=== PATIENT | male | born 1965 | race Caucasian/White ===

== ENCOUNTER 2017-04-21 11:04 | Observation (INO) ==
[2017-04-21 11:47] LABS: Basophils % 0.2 %; Eosinophils % 0.4 %; Hematocrit 48.2 % (37.5-50.1); Hemoglobin 16.2 g/dL (12.9-16.9); Immature Granulocytes % 0.2 % (0-4); Lymphocytes # 1.5 K/mcL (0.6-4.6); Lymphocytes % 27.5 %; Mean Corpuscular HGB Conc 33.6 g/dL (31.6-35.5); Mean Corpuscular Hemoglobin 29.1 pg (28.0-33.3); Mean Corpuscular Volume 86.5 fL (83.0-100.0); Mean Platelet Volume 11.8 fL (9.4-12.4); Monocytes # 0.5 K/mcL (0.0-1.3); Monocytes % 9.3 %; Neutrophils # 3.3 K/mcL (1.6-8.9); Platelet Count 125 K/mcL (140-400); Red Blood Count 5.57 M/mcL (4.19-5.50); Red Cell Distribution Width 12.2 % (11.5-14.5); Segmented Neutrophils % 62.4 %
[2017-04-21 11:57] LABS: BUN/Creatinine Ratio 11 (6-26); Blood Urea Nitrogen 13 mg/dL (8-26); Calcium 8.9 mg/dL (8.6-10.8); Carbon Dioxide 27 mEq/L (19-29); Chloride 109 mEq/L (98-109); Glucose 109 mg/dL (70-99); Osmolality,Calculated 295 (280-300); Potassium 3.9 mEq/L (3.5-4.5); Sodium 142 mEq/L (136-145); eGFR For African Americans > 60 (> 60); eGFR For Non-African Americans > 60 (> 60)
--- NOTE | 2017-04-21 12:14 | Emergency Department Note ---
Disposition Clinical Impression: Atrial flutter with rapid ventricular response Disposition: Admitted As Inpatient Condition: Fair Chest Pain HPI - General Chief Complaint: ED Chest Pain Stated Complaint: C/P x3 days Time Seen by Provider: 04/21/17 11:14 Source: patient Limitations: no limitations Vital Signs Reviewed: Yes Nursing Notes Reviewed: Yes - History of Present Illness HPI Narrative: The patient does have a history of intermittent atrial fibrillation and the patient is use energy drinks in the past and did drink 2 large monster drinks on and then exercised and after that had an onset of fast heartbeat which has been persistent for the last 3 days, he does not have any current associated dyspnea or diaphoresis. Does have some lightheadedness when these hands intermittently but none at this time. Does have some chest tightness which is also intermittent the last several days, nonexertional. No radiation. No pleuritic aspect. No pain or swelling of the lower extremities. Social history: Nonsmoker. Family history: Negative for heart disease Severity scale (1-10): 2 - Related Data Home Medications Medication Instructions Recorded Confirmed Aspirin [Lo-Dose Aspirin EC] 81 mg PO DAILY 04/21/17 04/21/17 Gluc/Pablo-MSM#1/C/Franc/Sammy/Bor [Eq 1 tab PO DAILY 04/21/17 04/21/17 Fampiygyirt-Zrcbspx-GAZ Tab] Multivits,Ca,Min/Iron/FA/Lycop 1 tab PO DAILY 04/21/17 04/21/17 [Centrum Men's Tablet] Allergies Allergy/AdvReac Type Severity Reaction Status Date / Time No Known Allergies Allergy Verified 04/21/17 11:06 Review of Systems: Constitutional: No fever Vision: No blurred vision ENT: No rhinorrhea Respiratory: No cough Allergic: No allergies : No blood in urine GI: No blood in stool Hematologic: No bruising Dermatologic: No skin rash Musculoskeletal: No pain in the extremities Neuro: No numbness of the extremities Chest Pain PMH - Past Medical History Medical history: Reports: atrial fibrillation, hyperlipidemia Psychiatric history: Reports: no psych history - Social History Smoking Status: Never smoker Alcohol use: Reports: none Drug use: Reports: none Physical Exam CONSTITUTIONAL: Well-appearing; well-nourished; A&O X 3, in no apparent distress HEAD: Normocephalic; atraumatic EYES: PERRL, no scleral icterus NOSE: The nose is normal in appearance without rhinorrhea NECK: No JVD or distended neck veins RESP: Normal chest excursion with respiration; breath sounds clear and equal bilaterally; no wheezes, rhonchi, or rales CARD: Regular rhythm, without murmurs, rub or gallop ABD: Non-distended; non-tender, soft, without rigidity, rebound or guarding,no pulsatile mass CHEST: No pain with palpation SKIN: Normal for age and race; warm and dry without diaphoresis ; no apparent lesions EXTREMITIES: Pulses are 2 plus and equal times 4 extremities, no peripheral edema or calf muscle pain - General Limitations: no limitations General appearance: alert Course Vital Signs Temperature 98.6 F 04/21/17 11:07 Pulse Rate 149 04/21/17 11:07 Respiratory Rate 20 04/21/17 11:07 Blood Pressure 114/82 04/21/17 11:07 O2 Sat by Pulse Oximetry 96 04/21/17 11:07 Temperature 98.0 F 04/21/17 15:35 Pulse Rate 69 04/21/17 15:35 Respiratory Rate 18 04/21/17 15:35 Blood Pressure 108/73 04/21/17 15:35 O2 Sat by Pulse Oximetry 97 04/21/17 15:35 Oxygen Delivery Oxygen Delivery Room Air Chest Pain - MDM Narrative Medical decision making narrative: Patient does have atrial fibrillation with rapid ventricular response, I have reviewed the lab results. Chest x-ray is pending to. I did review the EKG showing atrial flutter with a rapid ventricular response with rate of 145 bpm. The patient does not use any caffeine or energy drinks the last 3 days according to the patient. He will receive a Cardizem bolus 20 mg and then Cardizem drip 10 mg per hour and the patient will be admitted to the hospital. 1215 I did review the patient's lab results. He is being admitted to the hospital. Heart rate significantly improved after Cardizem. Repeat EKG shows a significantly improved rate in the patient is no longer in exacerbate - Medical Records Medical records reviewed: Yes I reviewed the patient's medical records. - Lab Data Lab results reviewed: Yes I reviewed the patient's lab results. Result diagrams: 04/21/17 11:37 04/21/17 11:37 Lab Results 04/21/17 04/21/17 04/21/17 Range/Units 11:37 11:37 11:37 WBC 5.4 (4.3-11.1) K/mcL RBC 5.57 H (4.19-5.50) M/mcL Hgb 16.2 (12.9-16.9) g/dL Hct 48.2 (37.5-50.1) % MCV 86.5 (83.0-100.0) fL MCH 29.1 (28.0-33.3) pg MCHC 33.6 (31.6-35.5) g/dL RDW 12.2 (11.5-14.5) % Plt Count 125 L (140-400) K/mcL MPV 11.8 (9.4-12.4) fL Immature Gran % 0.2 (0-4) % Seg Neutrophils % 62.4 % Lymphocytes % 27.5 % Monocytes % 9.3 % Eosinophils % 0.4 % Basophils % 0.2 % Neutrophils # 3.3 (1.6-8.9) K/mcL Lymphocytes # 1.5 (0.6-4.6) K/mcL Monocytes # 0.5 (0.0-1.3) K/mcL Eosinophils # 0.0 (0.0-0.6) K/mcL Basophils # 0.0 (0.0-0.2) K/mcL PT (9.4-12.1) Seconds INR APTT (26.0-36.0) Seconds Sodium 142 (136-145) mEq/L Potassium 3.9 (3.5-4.5) mEq/L Chloride 109 (98-109) mEq/L Carbon Dioxide 27 (19-29) mEq/L BUN 13 (8-26) mg/dL Creatinine 1.14 (0.72-1.25) mg/dL Est GFR ( Amer) > 60 (> 60) Est GFR (Non-Af Amer) > 60 (> 60) BUN/Creatinine Ratio 11 (6-26) Glucose 109 H (70-99) mg/dL Calculated Osmolality 295 (280-300) Calcium 8.9 (8.6-10.8) mg/dL Troponin I 0.01 (0-0.03) ng/mL 04/21/17 Range/Units 11:37 WBC (4.3-11.1) K/mcL RBC (4.19-5.50) M/mcL Hgb (12.9-16.9) g/dL Hct (37.5-50.1) % MCV (83.0-100.0) fL MCH (28.0-33.3) pg MCHC (31.6-35.5) g/dL RDW (11.5-14.5) % Plt Count (140-400) K/mcL MPV (9.4-12.4) fL Immature Gran % (0-4) % Seg Neutrophils % % Lymphocytes % % Monocytes % % Eosinophils % % Basophils % % Neutrophils # (1.6-8.9) K/mcL Lymphocytes # (0.6-4.6) K/mcL Monocytes # (0.0-1.3) K/mcL Eosinophils # (0.0-0.6) K/mcL Basophils # (0.0-0.2) K/mcL PT 10.4 (9.4-12.1) Seconds INR 1.0 APTT 27.7 (26.0-36.0) Seconds Sodium (136-145) mEq/L Potassium (3.5-4.5) mEq/L Chloride (98-109) mEq/L Carbon Dioxide (19-29) mEq/L BUN (8-26) mg/dL Creatinine (0.72-1.25) mg/dL Est GFR ( Amer) (> 60) Est GFR (Non-Af Amer) (> 60) BUN/Creatinine Ratio (6-26) Glucose (70-99) mg/dL Calculated Osmolality (280-300) Calcium (8.6-10.8) mg/dL Troponin I (0-0.03) ng/mL - Radiology Data Radiology results reviewed: Yes I reviewed the patient's radiology results. Critical Care Time Critical Care Time: Yes Total Critical Care Time: 30 Attestation: 30 minutes of critical care time with the patient with atrial flutter with rapid ventricular response administer of Cardizem bolus and Cardizem drip and repeat EKG and continued management of a unstable patient
[2017-04-21] MEDS ORDERED: 0.9 % Sodium Chloride 1,000 ML ONE (12:37)
[2017-04-21] MEDS ORDERED: 0.9 % Sodium Chloride 1,000 ML IVC ONE (12:46)
[2017-04-21] MEDS ORDERED: Naloxone 0.4 MG/ML INJ IVP PRN (14:07)
[2017-04-21] MEDS ORDERED: Acetaminophen 325 MG TABLET PO PRN (14:07)
[2017-04-21] MEDS ORDERED: Ondansetron 4 MG/2 ML VIAL IVP PRN (14:07)
[2017-04-21] MEDS ORDERED: *HR* Heparin 5,000 UNIT/ML VIAL IVP ONE (14:13)
[2017-04-21] MEDS ORDERED: *HR* Heparin 5,000 UNIT/ML VIAL IVP PRN ×2 (14:13)
[2017-04-21] MEDS ORDERED: Heparin 25,000 UNIT/500 ML D5W 25,000 UNIT/500 ML MLS IVC SCH (14:15)
--- NOTE | 2017-04-21 14:23 | Internal Med History&Physical ---
<Palmira Smart M - Last Filed: 04/21/17 14:19> Date of Encounter: 04/21/17 Time of Encounter: 14:19 Assessment and Plan (1) Atrial flutter with rapid ventricular response Current visit: Yes Status: Acute Patient presented with palpitations and heart racing which was constant since . EKG showed Aflutter with RVR, HR 145. After treatment with cardizem bolus and drip, patient in afib with HR in the 80s. Cardiology consulted, spoke with Dr. Vaz who requested heparin drip and NPO after midnight. Continue cardizem drip continuous cardiac rehab nurse (2) HLD (hyperlipidemia) Current visit: Yes Status: Acute Patient reports history of hyperlipidemia. He stopped taking his statin a few months ago. Will check lipid panel with AM labs and plan to restart statin on discharge. Qualifiers: Hyperlipidemia type: unspecified Qualified Code(s): E78.5 - Hyperlipidemia , unspecified (3) DVT prophylaxis Current visit: Yes Status: Acute anti-embolic stockings Patient on heparin drip for afib, additional pharmacologic prophylaxis not warranted. Internal Medicine - H&P: HPI Chief complaint: palpitations Admitted From: Emergency Dept Plans for Post Hospital Care: Home History of present illness: Mr. Nieto is a 51 year old male with hyperlipidemia, presents emergency department today with complaints of palpitations and intermittent chest tightness. Patient reports that on he drink some energy drinks, and exercised and soon after felt palpitations and felt like his heart was racing. He reports this is happened to him in the past on and off and is usually instigated by caffeine, and resolves after a little while. Patient reports that his symptoms did not resolve and his heart rate continued to be fast. When it still did not go away today he decided to come into the emergency department to be evaluated. He reports he had intermittent chest tightness over the weekend. He also had occasional lightheadedness on standing. He denies any shortness of breath, nausea, diaphoresis. He denies any numbness or tingling. Denies any recent infections, fevers, chills or sweats. Evaluation in the emergency department included EKG which showed a flutter with heart rate of 145. Troponin was negative at 0.01. Other labs are grossly normal. Chest x -ray was normal. Patient was given a Cardizem bolus 20 mg followed by a Cardizem drip which normalized his rate to the 80s, repeat EKG showed he was still in atrial fibrillation with heart rate in the 80s. On exam, patient alert and oriented, in no acute distress heart had a regular rhythm, with controlled rate in the 80s. Lungs are clear bilaterally to auscultation, abdomen was soft, nontender with positive bowel sounds. No peripheral edema, peripheral pulses intact. I spoke with Dr. Vaz of cardiology who requested he be put on a heparin drip and nothing by mouth after midnight. Past Med Surg Social Fam HX - Past Medical History Medical history: atrial fibrillation, hyperlipidemia Psychiatric history: no psych history - Past Surgical History Surgical History: herniorrhaphy - Social History Smoking Status: Never smoker Smokeless Tobacco Status: Yes Alcohol use: none Drug use: none - Family History Mother Living Status: Still Living Father Living Status: Hx Family Cancer: Yes Internal Medicine - H&P: Meds Aspirin [Lo-Dose Aspirin EC] 81 mg PO DAILY 04/21/17 [History] Gluc/Pablo-MSM#1/C/Franc/Sammy/Bor [Eq Wametshwkqb-Ncsrldt-UMY Tab] 1 tab PO DAILY 04/21/17 [History] Multivits,Ca,Min/Iron/FA/Lycop [Centrum Men's Tablet] 1 tab PO DAILY 04/21/17 [ History] 3 Allergy/AdvReac Type Severity Reaction Status Date / Time No Known Allergies Allergy Verified 04/21/17 11:06 All Systems PM: A 10-system review of systems was performed and is negative for pertinent findings except as documented above in the HPI. - Constitutional Constitutional: no chills, no fever(s), no night sweats - EENT Eyes: no change in vision, no discharge, no pain, no photophobia Ears: no ear discharge, no ear pain, no tinnitus Nose, mouth and throat: no dysphagia, no nasal discharge, no neck pain, no sore throat - Cardiovascular Cardiovascular ROS IM: chest pain, lightheadedness, palpitations, no diaphoresis , no dyspnea, no syncope - Respiratory Respiratory: no cough, no dyspnea, no wheezing, no excessive phlegm production - Gastrointestinal Gastrointestinal: no abdominal pain, no diarrhea, no hematemesis, no hematochezia, no melena, no nausea, no vomiting - Musculoskeletal Musculoskeletal ROS IM: no numbness, no tingling - Integumentary Integumentary IM: no rash, no unusual bruising - Neurological Neurological ROS: no confusion, no convulsions, no focal weakness, no numbness, no tingling, no tremor(s) - Hematologic/Lymphatic Hematologic/Lymphatic: no easy bruising - Constitutional Vitals: Temp Pulse Resp BP Pulse Ox 98.6 F 84 16 112/77 98 04/21/17 11:07 04/21/17 13:26 04/21/17 13:26 04/21/17 13:26 04/21/17 13:26 General appearance: Present: A&O X 3, pleasant, no acute distress - Head Head exam: Present: atraumatic, normocephalic - Eye Eye exam: Present: PERRL, conjuntiva pink, sclera anicteric Pupils: Present: PERRL - Neck Neck exam general surgery: Present: supple, trachea midline. Absent: lymphadenopathy - Respiratory Respiratory exam: Present: CTAB. Absent: accessory muscle use, rales, rhonchi, wheezes - Cardiovascular Cardiovascular exam: Present: irregular rhythm, +S1, +S2. Absent: diastolic murmur, gallop, rubs, systolic murmur - GI/Abdominal GI/Abdominal exam: Present: normal bowel sounds, soft, no peritoneal signs. Absent: distended, tenderness - Extremities Exam Extremities exam: Present: warm, radial pulses palpable and symmetrical. Absent : calf tenderness, cyanotic, pedal edema - Neurological Exam Neurological exam: Present: CN II-XII intact, oriented X3, no focal deficits. Absent: pronater drift, facial droop, speech deficit - Skin Skin exam: Present: dry, intact Internal Med - H&P Results - Labs CBC & Chem 7: 04/21/17 11:37 04/21/17 11:37 Labs: All Lab Results (24 Hours) 04/21/17 04/21/17 04/21/17 Range/Units 11:37 11:37 11:37 WBC 5.4 (4.3-11.1) K/mcL RBC 5.57 H (4.19-5.50) M/mcL Hgb 16.2 (12.9-16.9) g/dL Hct 48.2 (37.5-50.1) % MCV 86.5 (83.0-100.0) fL MCH 29.1 (28.0-33.3) pg MCHC 33.6 (31.6-35.5) g/dL RDW 12.2 (11.5-14.5) % Plt Count 125 L (140-400) K/mcL MPV 11.8 (9.4-12.4) fL Immature Gran % 0.2 (0-4) % Seg Neutrophils % 62.4 % Lymphocytes % 27.5 % Monocytes % 9.3 % Eosinophils % 0.4 % Basophils % 0.2 % Neutrophils # 3.3 (1.6-8.9) K/mcL Lymphocytes # 1.5 (0.6-4.6) K/mcL Monocytes # 0.5 (0.0-1.3) K/mcL Eosinophils # 0.0 (0.0-0.6) K/mcL Basophils # 0.0 (0.0-0.2) K/mcL Sodium 142 (136-145) mEq/L Potassium 3.9 (3.5-4.5) mEq/L Chloride 109 (98-109) mEq/L Carbon Dioxide 27 (19-29) mEq/L BUN 13 (8-26) mg/dL Creatinine 1.14 (0.72-1.25) mg/dL Est GFR ( Amer) > 60 (> 60) Est GFR (Non-Af Amer) > 60 (> 60) BUN/Creatinine Ratio 11 (6-26) Glucose 109 H (70-99) mg/dL Calculated Osmolality 295 (280-300) Calcium 8.9 (8.6-10.8) mg/dL Troponin I 0.01 (0-0.03) ng/mL - Impressions ITS Impressions Chest X-Ray 04/21/17 11:25 IMPRESSION: Normal chest x-ray D/ / Bryan Neff MD / Bryan Neff MD Interpreting Provider: Bryan Neff MD - Diagnostic Studies Chest x-ray Additional comments: Chest X-Ray 04/21/17 11:25 IMPRESSION: Normal chest x-ray D/ / Bryan Neff MD / Bryan Neff MD Interpreting Provider: Bryan Neff MD <Shanice Terrazas - Last Filed: 04/21/17 17:14> Date of Encounter: 04/21/17 Internal Medicine - H&P: HPI History of present illness: Mr. Nieto is a 51 year old male All Systems PM: A 10-system review of systems was performed and is negative for pertinent findings except as documented above in the HPI. - Constitutional Vitals: Temp Pulse Resp BP Pulse Ox 98.0 F 69 18 108/73 97 04/21/17 15:35 04/21/17 15:35 04/21/17 15:35 04/21/17 15:35 04/21/17 15:35 Internal Med - H&P Results - Labs CBC & Chem 7: 04/21/17 11:37 04/21/17 11:37 - Attending Attestation Patient independently seen and examined. Admitted for Afib with RVR. Noted history and not on any medication for rate control Pt reports of having difficulty affording his medications. public health worker evaluation requested Cardiology evaluation requested. Heparin gtt, cardizem gtt, tele monitoring. Case discussed with SUSSY Smart, I agree with her documented findings, assessment, and plan.
[2017-04-21 14:52] LABS: Prothrombin Time 10.4 Seconds (9.4-12.1)
[2017-04-21 14:55] LABS: Activated Partial Thrombo Time 27.7 Seconds (26.0-36.0)
[2017-04-22 01:12] LABS: Basophils % 0.2 %; Eosinophils # 0.1 K/mcL (0.0-0.6); Hematocrit 41.7 % (37.5-50.1); Immature Granulocytes % 0.4 % (0-4); Lymphocytes # 2.1 K/mcL (0.6-4.6); Lymphocytes % 42.5 %; Mean Corpuscular HGB Conc 34.5 g/dL (31.6-35.5); Mean Corpuscular Hemoglobin 30.2 pg (28.0-33.3); Mean Corpuscular Volume 87.4 fL (83.0-100.0); Mean Platelet Volume 12.1 fL (9.4-12.4); Monocytes # 0.5 K/mcL (0.0-1.3); Monocytes % 9.3 %; Neutrophils # 2.3 K/mcL (1.6-8.9); Platelet Count 112 K/mcL (140-400); Red Blood Count 4.77 M/mcL (4.19-5.50); Red Cell Distribution Width 12.6 % (11.5-14.5); Segmented Neutrophils % 46.6 %
[2017-04-22 01:13] LABS: Hemoglobin 14.4 g/dL (12.9-16.9)
[2017-04-22 01:28] LABS: BUN/Creatinine Ratio 14 (6-26); Blood Urea Nitrogen 14 mg/dL (8-26); Calcium 8.2 mg/dL (8.6-10.8); Carbon Dioxide 27 mEq/L (19-29); Chloride 109 mEq/L (98-109); Chol/HDL Ratio 6.5 (0-4.9); Cholesterol 149 mg/dL (< 200); Glucose 95 mg/dL (70-99); HDL Cholesterol 23 mg/dL (40-59); LDL Cholesterol,Calculated 76 mg/dL (0-99); Osmolality,Calculated 294 (280-300); Potassium 3.6 mEq/L (3.5-4.5); Sodium 142 mEq/L (136-145); Triglycerides 252 mg/dL (< 150); eGFR For African Americans > 60 (> 60); eGFR For Non-African Americans > 60 (> 60)
[2017-04-22 11:02] VITALS: BP 153/85
--- NOTE | 2017-04-22 11:04 | Cardiology Consult Note ---
Date of Encounter: 04/22/17 Time of Encounter: 10:00 Assessment and Plan (1) Atrial flutter with rapid ventricular response Status: Resolved Pt admitted for atrial flutter with RVR and has h/o atrial fibrillation. His initial EKG in the emergency department showed atrial flutter with heart rate of 145 and his repeat EKG showed atrial flutter with heart rate in 80s. Pt converted to sinus rhythm overnight. Pt's symptoms have resolved since his rate was controlled with Cardizem 20mg bolus in the ED and symptoms remain controlled with Cardizem drip. Pt has been prescribed Cardizem CD 180mg PO daily. He has been anticoagulated with IV heparin in hospital and he will take 325mg ASA as outpatient. Pt needs an echo, but since he feels well today, this can be done outpatient and he is safe to be discharged from cardiology standpoint. Received notification from RN taking care of pt that he deferred his echo because he doesn't currently have insurance, so he can't afford to pay for an echo and his hospital stay. Pt took his telemetry monitoring off and said he was ready to be discharged. After I saw the notification, I went to talk to the pt regarding his echocardiogram, but he wasn't in the room as he had already left the hospital after being discharged by IM. Pt is to follow up with Dr. Dennis Vaz in 1 to 2 weeks. Discussion w patient/family: The assessment and plan as outlined above was discussed with the patient and/or family members who expressed understanding and agreement. All questions were answered. Thank you for involving us in the care of your patient. Please call with any questions. History of Present Illness Consult date: 04/22/17 Consult reason: new atrial flutter with RVR Chief complaint: CP x 3 days, heart racing History of present illness: Mr. Nieto is a 51 year old male with a h/o atrial fibrillation and HLD who presented to the emergency department 04/21/17 for chest pain that lasted for 3 days and c/o palpitations and intermittent chest tightness. On 04/17 pt had consumed a couple energy drinks prior to exercising and then experienced palpitations and tachycardia, waiting a few days for it to resolve on its own as it had in the past. He decided to come to the hospital when his symptoms hadn 't resolved on 04/21. In the ED, his initial EKG showed atrial flutter with HR 145, troponin was 0.01, other labs were grossly normal, and CXR normal. He received 20mg Cardizem bolus and then placed on Cardizem drip, resulting in a HR 80s and relief of symptoms. Repeat EKG showed atrial fibrillation and cardiology was consulted for evaluation. Past Med Surg Social Fam HX - Past Medical History Medical history: atrial fibrillation, hyperlipidemia Psychiatric history: no psych history - Past Surgical History Surgical History: herniorrhaphy - Social History Smoking Status: Never smoker Smokeless Tobacco Status: Yes Alcohol use: none Drug use: none - Family History Mother Living Status: Still Living Father Living Status: Hx Family Cancer: Yes Medications and Allergies Aspirin [Lo-Dose Aspirin EC] 81 mg PO DAILY 04/21/17 [History] Gluc/Pablo-MSM#1/C/Franc/Sammy/Bor [Eq Onuazfqcicw-Ulypiiq-TGK Tab] 1 tab PO DAILY 04/21/17 [History] Multivits,Ca,Min/Iron/FA/Lycop [Centrum Men's Tablet] 1 tab PO DAILY 04/21/17 [ History] Aspirin 325 mg PO DAILY #30 tab 04/22/17 [Rx] Diltiazem CD (24hr) [Cardizem CD] 180 mg PO DAILY #30 cap 04/22/17 [Rx] 3 Allergy/AdvReac Type Severity Reaction Status Date / Time No Known Allergies Allergy Verified 04/21/17 11:06 All Systems Review: A 10-system review of systems was performed and is negative for pertinent findings except as documented above in the HPI. - Cardiovascular Cardiovascular: no chest pain at rest, no diaphoresis, no leg edema, no lightheadedness (no lightheadedness with standing, walking), no palpitations, no rapid heart rate - Respiratory Respiratory: no dyspnea - Gastrointestinal Gastrointestinal: no nausea - Neurological Neurological: no numbness, no syncope, no tingling Physical Examination Vital Signs, Last 4 Hours Temp Pulse Resp BP Pulse Ox 04/22/17 09:00 96 04/22/17 07:39 97.5 F L 68 18 111/68 96 General: Conversant, No Apparent Distress HEENT: Atraumatic, Normocephaly, Mucus Membranes Moist Cardiac: Reg Rate and Rhythm, Normal S1 and S2, No Murmur Lungs: Normal Breath Sounds, No Wheeze, Rales, Rhonchi Neuro: Alert and responsive, No focal deficits noted Skin: No rashes noted on visualized skin Musculoskeletal: No Chest Wall Tenderness Extremities: No Clubbing, No Cyanosis, No Edema, Normal Pulses Results 04/22/17 00:29 04/22/17 00:29 Lab Results 04/22/17 04/22/17 04/22/17 00: 00:29 00:29 WBC 4.9 Hgb 14.4 D Hct 41.7 Plt Count 112 L APTT 67.3 H D Sodium 142 Potassium 3.6 Chloride 109 Carbon Dioxide 27 BUN 14 Creatinine 1.02 Glucose 95 Calcium 8.2 L 04/22/17 07:12 WBC Hgb Hct Plt Count APTT 67.1 H Sodium Potassium Chloride Carbon Dioxide BUN Creatinine Glucose Calcium - Imaging and Cardiology Chest Xray: report reviewed Echo: pending, other (refused by pt because doesn't have insurance and can't afford to pay for the test.) Consult Discharge Plan - Plan Instructions: Atrial Flutter (DC) Referrals: Dennis Vaz MD [Partnered Physician] - (1-2 weeks) NONE,PCP [Primary Care Provider] - Prescriptions: Aspirin 325 mg PO DAILY #30 tab Diltiazem CD (24hr) [Cardizem CD] 180 mg PO DAILY #30 cap
[2017-04-22] MEDS ORDERED: Aspirin 325 MG TABLET PO SCH (11:45)
[2017-04-22] MEDS ORDERED: Diltiazem CD (24hr) 180 MG CAPSULE PO SCH (11:46)
--- NOTE | 2017-04-22 12:46 | Discharge Summary ---
Date of Encounter: 04/22/17 Time of Encounter: 12:44 - Discharge Diagnosis (1) Atrial flutter with rapid ventricular response Priority: Primary Status: Resolved (2) HLD (hyperlipidemia) Priority: Secondary Status: Acute Qualifiers: Hyperlipidemia type: unspecified Qualified Code(s): E78.5 - Hyperlipidemia , unspecified (3) DVT prophylaxis Priority: Secondary Status: Acute - Discharge Medications Prescriptions: Aspirin 325 mg PO DAILY #30 tab Diltiazem CD (24hr) [Cardizem CD] 180 mg PO DAILY #30 cap Home Medications: Aspirin [Lo-Dose Aspirin EC] 81 mg PO DAILY 04/21/17 [History] Gluc/Pablo-MSM#1/C/Franc/Sammy/Bor [Eq Mgpmlopuljz-Vfrjpcy-JKO Tab] 1 tab PO DAILY 04/21/17 [History] Multivits,Ca,Min/Iron/FA/Lycop [Centrum Men's Tablet] 1 tab PO DAILY 04/21/17 [ History] Aspirin 325 mg PO DAILY #30 tab 04/22/17 [Rx] Diltiazem CD (24hr) [Cardizem CD] 180 mg PO DAILY #30 cap 04/22/17 [Rx] Allergies/Adverse Reactions: 3 Allergy/AdvReac Type Severity Reaction Status Date / Time No Known Allergies Allergy Verified 04/21/17 11:06 Procedures/tests Complete & Pending: Procedures Performed prior 72 hours Category Date Time Status EV echocardiogram Routine Y 04/22/17 11:15 Ordered Date of admission: 04/21/17 14:43 Primary care physician: PCP NONE Consults: 04/21/17 18:38 Consult to [employer] Reading Teacher [CONS] Routine Reason for SW Consult: financial engineer/assistance for medications Discharging clinician: Michelle Lagos Anticipated date of discharge: 04/22/17 - Patient Status Disposition: Home, Self-Care Condition: Good Functional capacity at discharge: independent ambulation Overall status at discharge: patient is progressing back to baseline - Ambulatory Orders Ambulatory Orders: EV echocardiogram Time Frame: 1 Week, Facility: [facility], Location: Cardiopulmonary Svc - Discharge Instructions Instructions: Atrial Flutter (DC) Follow Up With: NONE,PCP [Primary Care Provider] - Dennis Vaz MD [Partnered Physician] - (1-2 weeks) - Diet and Activity Activity: increase activity as tolerated Diet: low fat, low cholesterol, low salt diet Hospital course: Mr. Nieto is a 51 year old male patient at a history of atrial fibrillation who was admitted here with intermittent palpitations and chest tightness. He was diagnosed with A. fib/A flutter with rapid ventricle response and was placed on intravenous Cardizem drip. Cardiology was consulted and they recommended placing the patient on IV heparin while awaiting his response to IV Cardizem. This morning his heart rate is much better controlled. Cardiology has placed him on oral Cardizem and cleared him for discharge. They did recommend that he undergo a 2-D echocardiogram prior to discharge but patient does not want to wait for that. He will be given a prescription to get the echocardiogram done as outpatient and follow-up with cardiology after discharge. At this time he will be discharged on Cardizem 180 mg by mouth daily and will be on high-dose aspirin for anticoagulation pending his echocardiogram per cardiology recommendations. - Time Spent with Patient Total time spent providing and/or coordinating discharge services: Less than 30 minutes (25 min) - Constitutional Vitals: Temp Pulse Resp BP Pulse Ox 97.4 F L 68 18 153/85 97 04/22/17 10:57 04/22/17 10:57 04/22/17 10:57 04/22/17 10:57 04/22/17 10:57 General appearance: Present: A&O X 3, pleasant, no acute distress, answers questions appropriately - Respiratory Respiratory exam: Present: CTAB. Absent: accessory muscle use, rales, rhonchi, wheezes - Cardiovascular Cardiovascular exam: Present: RRR, +S1, +S2. Absent: diastolic murmur, gallop, rubs, systolic murmur - GI/Abdominal GI/Abdominal exam: Present: normal bowel sounds, soft, no peritoneal signs. Absent: distended, tenderness
--- NOTE | 2017-04-22 16:58 | Electrocardiograph Report ---
[place] [id number] Test Date: 2017-04-21 Pat Name: Dustin Nieto Department: 104 Room: 2A Gender: M Processing Supervisor: : 1965 Requested By: Vinicius Nathan Order Number: [id number] Reading MD: Jacque Zhu Measurements Intervals [employer] Rate: 144 P: [place]: 0 QRS: -53 QRSD: 94 T: 19 QT: 262 QTc: 345 Interpretive Statements ATRIAL FLUTTER/TACHYCARDIA WITH RAPID VENTRICULAR RESPONSE LOW QRS VOLTAGE IN PRECORDIAL LEADS Electronically Signed On 04-22-2017 16:56:56 EDT by Jacque Zhu
--- NOTE | 2017-04-22 17:00 | Electrocardiograph Report ---
[place] [id number] Test Date: 2017-04-21 Pat Name: Dustin Nieto Department: 104 Room: 2A Gender: M Congressional Aide: : 1965 Requested By: Michelle Lagos Order Number: [id number] Reading MD: Jacque Zhu Measurements Intervals [place] Rate: 81 P: [place]: 0 QRS: -24 QRSD: 96 T: -10 QT: 351 QTc: 388 Interpretive Statements ATRIAL FIBRILLATION LOW QRS VOLTAGE IN PRECORDIAL LEADS PATTERN CONSISTENT WITH PULMONARY DISEASE INFERIOR MYOCARDIAL INFARCTION, OF INDETERMINATE AGE Electronically Signed On 04-22-2017 16:58:49 EDT by Jacque Zhu
[2017-04-23] MEDS ORDERED: Diltiazem CD (24hr) 180 MG CAPSULE PO SCH (09:00)
[2017-04-23] MEDS ORDERED: Aspirin 325 MG TABLET PO SCH (09:00)
== END 2017-04-22 13:11 | disposition home or self-care (01) ==
LOC: EMEROO 11:04 → 2ANU 11:04
PROVIDERS: ADMIT Internal Medicine; ATTEND Internal Medicine